=== PATIENT | male | born 1985 | race Caucasian/White ===

== ENCOUNTER 2022-05-23 18:50 | Emergency (ER) | payer BC ==
[~2022-05-23] VITALS: Ht 172.7 cm; Wt 105.2 kg
[2022-05-23 18:58] VITALS: BP 124/81
[2022-05-23] MEDS ORDERED: NACL 0.9% 1,000 ML IV ONE (19:05)
[2022-05-23] MEDS ORDERED: FAMOTIDINE 20 MG/2 ML VIAL IVP ONE (19:05)
--- NOTE | 2022-05-23 19:08 | NUR ---
Patient ambulated with steady gait to bed 7.
--- NOTE | 2022-05-23 19:54 | NUR ---
Covid, flu, and novel swabs sent to lab.
[2022-05-23 20:52] LABS: HEMATOCRIT 48.3 % (36-52); HEMOGLOBIN 16.4 g/dL (12.0-18.0); LYMPHOCYTES # (AUTO) 0.5 K/uL (2.0-11.5); LYMPHOCYTES % (AUTO) 5.1 % (20.5-51.1); MEAN CORPUSCULAR HEMOGLOBIN 29 pg (27-31); MEAN CORPUSCULAR HGB CONC 34 g/dL (33-37); MEAN CORPUSCULAR VOLUME 85.5 fL (80-94); MONOCYTES # (AUTO) 1.9 K/uL (0.8-1.0); MONOCYTES % (AUTO) 19.5 % (1.7-9.3); NEUTROPHILS # (AUTO) 7.4 K/uL (1.8-7.7); NEUTROPHILS % (AUTO) 75.4 % (42.2-75.2); PLATELET COUNT (AUTO) 239 K/uL (140-450); RED BLOOD CELL COUNT(AUTO) 5.65 MIL/uL (4.20-6.10); RED CELL DISTRIBUTION WIDTH 13.5 % (11.6-13.7); WHITE BLOOD COUNT (AUTO) 9.8 K/uL (4.8-10.8)
--- NOTE | 2022-05-23 20:53 | NUR ---
#20g IV placed on right AC using aseptic technique. lab drawn and sent to lab. IV flushed with 10cc NS and no infiltration noted.
[2022-05-23] MEDS ORDERED: FAMOTIDINE 20 MG/2 ML VIAL ONE (20:58)
[2022-05-23 21:16] LABS: ALBUMIN 3.9 g/dL (3.4-5.0); ANION GAP 14.1 (8-16); ASPARTATE AMINOTRANSFERASE 26 U/L (15-37); CARBON DIOXIDE 26.8 mmol/L (21-32); CHLORIDE 101 mmol/L (98-107); CREATININE 1.2 mg/dL (0.6-1.3); GFR ARICAN-AMERICAN 87 mL/min (>90); GLUCOSE 99 mg/dL (74-106); POTASSIUM 3.9 mmol/L (3.5-5.1); SODIUM SERUM 138 mmol/L (136-145); TOTAL BILIRUBIN 0.6 mg/dL (0.0-1.0); UREA NITROGEN, BLOOD 17 mg/dL (7-18)
[2022-05-23] MEDS ORDERED: FAMO-90 PO (22:07)
[2022-05-23 22:13] VITALS: BP 11/76
--- NOTE | 2022-05-23 22:13 | NUR ---
Patient discharged with v/s stable. Written and verbal after care instructions given and explained. Patient verbalized understanding. Ambulatory with steady gait. All questions addressed prior to discharge. Advised to follow up with PMD.
== END 2022-05-23 22:13 | disposition home or self-care (01) ==
LOC: MED 18:50
DX: R07.9 Chest pain, unspecified (principal); Z20.822 Contact with and (suspected) exposure to COVID-19; R19.7 Diarrhea, unspecified
CPT/HCPCS: 36415; 71045; 80053; 84443; 84484; 85025; 85379; 87426; 87635; 87804; 93005; 96361; 96374; 99285; C9803; J3490; Q0092; J7030